=== PATIENT | female | born 1970 | race Caucasian/White ===

== ENCOUNTER 2019-09-12 18:58 | Emergency (ER) | payer MEDICAID ==
[~2019-09-12] VITALS: Ht 165.1 cm; Wt 61.2 kg
--- NOTE | 2019-09-12 19:20 | NUR ---
Pt ambulated in ER for the c/o lower abdominal discomfort and constipationx 5 days. Pt also c/o urinary retention, states she has not been able to urinate since earlier this morning. Safe environment implemented.
[2019-09-12] MEDS ORDERED: MAGNESIUM CITRATE 296 ML BOTTLE ONE (19:37)
[2019-09-12 19:40] LABS: *BILIRUBIN,URIN NEGATIVE (NEGATIVE); *CLARITY,URINE SLIGHTLY CLOUDY (CLEAR); *COLOR,URINE LIGHT YELLOW (YELLOW); *KETONES,URINE NEGATIVE (NEGATIVE); *UROBILINOGEN,URINE 0.2 E.U./dl (NORMAL); LEUKOCYTE ESTERASE ,URINE TRACE (NEGATIVE); NITRITE, URINE POSITIVE (NEGATIVE); UGLUCOSE NEGATIVE (NEGATIVE)
[2019-09-12 19:44] LABS: *BLOOD, URINE TRACE (NEGATIVE)
[2019-09-12 19:45] LABS: BACTERIA,URINE MANY /HPF (NONE SEEN); SQUAMOUS EPITHELIAL CELL,UR FEW /HPF (NONE SEEN)
[2019-09-12] MEDS ORDERED: MAGNESIUM CITRATE 296 ML BOTTLE PO ONE (19:45)
[2019-09-12] MEDS ORDERED: NITROFURANTOIN/NITROFURAN MAC 100 MG CAPSULE PO ONE (20:00)
[2019-09-12] MEDS ORDERED: NITROFURANTOIN/NITROFURAN MAC 100 MG CAPSULE ONE (20:03)
--- NOTE | 2019-09-12 21:20 | NUR ---
Patient discharged home with goel catheter and leg bag in place. No acute distress. Patient discharged to home in stable conditon. Written and verbal after care instructions given. Patient verbalizes understanding of instructions. Patient ambulated out of the Er with stable gait.
[2019-09-12 21:21] VITALS: BP 138/92
== END 2019-09-12 21:22 | disposition home or self-care (01) ==
LOC: ER 18:58
DX: N39.0 Urinary tract infection, site not specified (principal); R33.9 Retention of urine, unspecified; F17.200 Nicotine dependence, unspecified, uncomplicated; K56.41 Fecal impaction; Z88.1 Allergy status to other antibiotic agents
CPT/HCPCS: 87077; 87086; A4663

== ENCOUNTER 2019-09-14 15:33 | Emergency (ER) | payer MEDICAID ==
[~2019-09-14] VITALS: Ht 165.1 cm; Wt 61.2 kg
--- NOTE | 2019-09-14 15:57 | NUR ---
PATIENT WAS MSE BY DR MINOR IN ROOM 04B. PATIENT A & O X4.
--- NOTE | 2019-09-14 16:03 | NUR ---
PATIENT WAS ABLE TO VOID AFTER FC DC. NOTED 30 ML IN BAG PRIOR TO DC. NO PAIN. NO BLEEDING TOLERATED PROCEDURE. WILL MONITOR FOR ANY CHANGES
--- NOTE | 2019-09-14 16:03 | NUR ---
PATIENT WAS ABLE TO VOID AFTER FC DC. NOTED 30 ML IN BAG PRIOR TO DC. NO PAIN. NO BLEEDING. TOLERATED PROCEDURE. WILL MONITOR FOR ANY CHANGES. DR MINOR MADE AWARE.
--- NOTE | 2019-09-14 16:08 | NUR ---
Patient discharged to home in stable conditon. Written and verbal after care instructions given. Patient verbalizes understanding of instructions.
[2019-09-14 16:11] VITALS: BP 104/73
== END 2019-09-14 16:15 | disposition home or self-care (01) ==
LOC: ER 15:35
DX: Z46.6 Encounter for fitting and adjustment of urinary device (principal); R33.9 Retention of urine, unspecified; K59.00 Constipation, unspecified; F17.200 Nicotine dependence, unspecified, uncomplicated; Z88.1 Allergy status to other antibiotic agents
CPT/HCPCS: A4663

== ENCOUNTER 2019-11-13 20:10 | Emergency (ER) | payer MEDICAID ==
[~2019-11-13] VITALS: Ht 165.1 cm; Wt 61.2 kg
--- NOTE | 2019-11-13 20:10 | NUR ---
Patient brought in by with altered mental status, minimally responsive, appears hypoxic. Per , patient took pain medication. Patient immediately placed to room 1B. Dr Ross at bedside for MSE. O2 saturation at room air, initially 70. Placed on O2 @ 10 LPM on Non rebreather mask. O2 saturation at 96 - 100% at this time. HR elevated to 150s, Sinus Tachycardia. IV line started on R AC 20 G. Narcan administered as ordered. BS checked: 130. No other signs of physical injury or trauma. Patient woke up within a few minutes of Narcan administration. AO x 3, now verbally responsive. Breathing even and unlabored on room air. HR remains on sinus tachycardia at 130s.Veronica VALLEJO with patient at this time, carrying out MD orders. Fall and safety precautions maintained.
[2019-11-13] MEDS ORDERED: NALOXONE HCL 0.4 MG/ML AMPUL IV ONE (20:30)
[2019-11-13] MEDS ORDERED: IV NORMAL SALINE 1000 ML BAG IV ONE (20:30)
[2019-11-13 20:31] LABS: BASOPHILS # (AUTO) 0.1 K/uL (0.0-8.0); BASOPHILS % (AUTO) 0.6 % (0.0-2.0); EOSINOPHILS # (AUTO) 0.3 K/uL (0.0-0.7); EOSINOPHILS % (AUTO) 2.7 % (0.0-7.0); HEMATOCRIT 43.4 % (31.2-41.9); HEMOGLOBIN 14.1 g/dL (10.9-14.3); LYMPHOCYTES # (AUTO) 4.5 K/uL (20.0-40.0); LYMPHOCYTES % (AUTO) 39.8 % (20.5-51.5); MEAN CORPUSCULAR HEMOGLOBIN 30.2 uug (24.7-32.8); MEAN CORPUSCULAR HGB CONC 33 g/dL (32.3-35.6); MEAN CORPUSCULAR VOLUME 92.7 fL (75.5-95.3); MONOCYTES % (AUTO) 8.7 % (0.0-11.0); NEUTROPHILS # (AUTO) 5.5 K/uL (1.8-8.9); NEUTROPHILS % (AUTO) 48.2 % (38.5-71.5); PLATELET COUNT (AUTO) 382 K/uL (179-408); RED BLOOD CELL COUNT(AUTO) 4.68 MIL/uL (3.63-4.92); WHITE BLOOD COUNT (AUTO) 11.4 K/uL (3.8-11.8)
[2019-11-13 20:40] LABS: CREATININE 1.1 mg/dL (0.6-1.3); POTASSIUM 3.8 mmol/L (3.5-5.1)
[2019-11-13 20:46] LABS: BILIRUBIN,DIRECT 0.1 mg/dL (0.0-0.2); BILIRUBIN,TOTAL 0.1 mg/dL (0.2-1.0); TOTAL PROTEIN, SERUM 7.1 g/dL (6.4-8.2)
[2019-11-13 21:21] LABS: *AMPHETAMINE, URINE POSITIVE (NEGATIVE); *BARBITURATE, URINE NEGATIVE (NEGATIVE); *CANNABINOID, URINE NEGATIVE (NEGATIVE); *COCCAINE, URINE NEGATIVE (NEGATIVE); *OPIATE, URINE POSITIVE (NEGATIVE); *PHENCYCLIDINE SCREEN,URINE NEGATIVE (NEGATIVE)
--- NOTE | 2019-11-13 21:30 | NUR ---
Patient remains in bed, awake, alert and fully oriented. Water provided, as requested. Patient verbalized "feeling better". No adverse effects from Narcan observed. Denies pain, nausea or vomiting at this time. Side rails up x 2. No further signs of distress at this time.
[2019-11-13 21:41] LABS: ETHANOL < 3 MG/DL (0-0)
--- NOTE | 2019-11-13 22:20 | NUR ---
Patient discharged to home in stable condition. IV removed. Catheter intact and site benign. Pressure and 4x4 gauze applied to site. No bleeding noted. Written and verbal after care instructions given. Patient verbalizes understanding of instructions. Stressed follow up or return to ER for worsening s/s. All VS normal, recorded. Pt ambulated out of ER in steady gait. Picked up by , Ramesh.
[2019-11-13 22:24] VITALS: BP 128/78
[2019-11-14] MEDS ORDERED: NALOXONE HCL 0.4 MG/ML AMPUL ONE (01:54)
== END 2019-11-13 22:25 | disposition home or self-care (01) ==
LOC: ER 20:11
DX: T50.911A Poisoning by multiple unspecified drugs, medicaments and biological substances, accidental (unintentional), initial encounter (principal); Y92.89 Other specified places as the place of occurrence of the external cause; F15.10 Other stimulant abuse, uncomplicated; R41.82 Altered mental status, unspecified; R40.2362 Coma scale, best motor response, obeys commands, at arrival to emergency department; R40.2142 Coma scale, eyes open, spontaneous, at arrival to emergency department; R40.2252 Coma scale, best verbal response, oriented, at arrival to emergency department; R00.0 Tachycardia, unspecified; R23.0 Cyanosis; G89.29 Other chronic pain; J96.91 Respiratory failure, unspecified with hypoxia
CPT/HCPCS: 36415; 71045; 80048; 80076; 80307 ×2; 82962; 84443; 84484; 85025; 93005; 96361; 96374; 99285; J2310; 70030-TC; G0480; J7030

== ENCOUNTER 2020-10-15 02:06 | Emergency (ER) | payer MEDICAID ==
[~2020-10-15] VITALS: Ht 165.1 cm; Wt 54.4 kg
[2020-10-15] MEDS ORDERED: LIDOCAINE HCL 1% 20 ML VIAL ONE (02:57)
--- NOTE | 2020-10-15 03:00 | NUR ---
Dr Valentin into drain abscess on face.
[2020-10-15] MEDS ORDERED: SULF1TAB48 PO (03:06)
[2020-10-15 03:14] VITALS: BP 112/62
[2020-10-15] MEDS ORDERED: LIDOCAINE HCL 1% 20 ML VIAL IJ ONE (03:15)
--- NOTE | 2020-10-15 03:15 | NUR ---
Patient discharged to home in stable condition. Written and verbal after care instructions given. Patient verbalizes understanding of instructions. Stressed follow up or return to ER for worsening s/s.
== END 2020-10-15 03:16 | disposition home or self-care (01) ==
LOC: ER 02:06
DX: L02.01 Cutaneous abscess of face (principal); G89.29 Other chronic pain; Z87.892 Personal history of anaphylaxis; Z88.1 Allergy status to other antibiotic agents
CPT/HCPCS: 96372; 99283; J3490; A4663

== ENCOUNTER 2020-11-10 18:44 | Emergency (ER) | payer MEDICAID ==
[~2020-11-10] VITALS: Ht 165.1 cm; Wt 54.4 kg
[~2020-11-10 18:44] MED LIST: SULF1TAB48 PO
[2020-11-10] MEDS ORDERED: MUPIROCIN 2% OINT 22 GM TUBE TP ONE (19:15)
[2020-11-10] MEDS ORDERED: SULFAMETH/TRIMETH 800/160 MG TABLET PO ONE (19:15)
[2020-11-10] MEDS ORDERED: MUPIROCIN 2% OINT 22 GM TUBE ONE (19:20)
[2020-11-10] MEDS ORDERED: SULFAMETH/TRIMETH 800/160 MG TABLET ONE (19:20)
[2020-11-10] MEDS ORDERED: SULF1TAB47 PO (19:29)
--- NOTE | 2020-11-10 19:39 | NUR ---
I&D by Dr. Murphy. Patient discharged to home in stable condition. Written and verbal after care instructions given. Patient verbalizes understanding of instructions. Stressed follow up or return to ER for worsening s/s.
[2020-11-10 19:40] VITALS: BP 116/71
== END 2020-11-10 19:40 | disposition home or self-care (01) ==
LOC: ER 18:49
DX: L02.414 Cutaneous abscess of left upper limb (principal); F17.200 Nicotine dependence, unspecified, uncomplicated; Z87.892 Personal history of anaphylaxis; Z88.1 Allergy status to other antibiotic agents; G89.29 Other chronic pain
CPT/HCPCS: A4663

== ENCOUNTER 2020-11-14 14:24 | Emergency (ER) | payer MEDICAID ==
[~2020-11-14 14:24] MED LIST changes: +SULF1TAB47 PO
== END 2020-11-14 14:43 | disposition left against medical advice (07) ==
LOC: ER 14:24
DX: Z53.21 Procedure and treatment not carried out due to patient leaving prior to being seen by health care provider (principal)

== ENCOUNTER 2021-02-05 21:24 | Emergency (ER) | payer MEDICAID ==
[~2021-02-05] VITALS: Ht 165.1 cm; Wt 53.5 kg
--- NOTE | 2021-02-05 22:10 | NUR ---
Pt here for medication refill of risperal. Pt. denies any SI, hallucinations. Pt stable.
[2021-02-05] MEDS ORDERED: RISP0.5T5 PO (22:36)
[2021-02-05] MEDS ORDERED: risperiDONE 0.5 MG TABLET PO SCH (22:45)
--- NOTE | 2021-02-05 23:00 | NUR ---
Patient discharged to home in stable condition. Written and verbal after care instructions given. Patient verbalizes understanding of instructions. Stressed follow up or return to ER for worsening s/s. Pt. took all belongings, walks with steady gait.
[2021-02-05] MEDS ORDERED: risperiDONE 0.5 MG TABLET ONE (23:10)
[2021-02-05 23:57] VITALS: BP 115/64
== END 2021-02-05 23:00 | disposition home or self-care (01) ==
LOC: ER 21:26
DX: F22 Delusional disorders (principal); Z87.892 Personal history of anaphylaxis; Z88.1 Allergy status to other antibiotic agents; F17.210 Nicotine dependence, cigarettes, uncomplicated
CPT/HCPCS: A4663

== ENCOUNTER 2021-04-22 06:28 | Emergency (ER) | payer MEDICAID ==
[~2021-04-22] VITALS: Ht 160 cm; Wt 54.4 kg
[~2021-04-22 06:28] MED LIST changes: +RISP0.5T5 PO
[2021-04-22] MEDS ORDERED: HYDR453. TP (06:49)
[2021-04-22 07:00] VITALS: BP 136/82
--- NOTE | 2021-04-22 07:00 | NUR ---
Patient discharged to home in stable condition. Written and verbal after care instructions given. Patient verbalizes understanding of instructions. Stressed follow up or return to ER for worsening s/s. Patient ambulates with steady gait, V/S stable, paper Rx given, and left with all personal belongings.
== END 2021-04-22 07:00 | disposition home or self-care (01) ==
LOC: ER 06:33
DX: L40.9 Psoriasis, unspecified (principal); Z88.1 Allergy status to other antibiotic agents; Z87.892 Personal history of anaphylaxis; F41.9 Anxiety disorder, unspecified; Z79.899 Other long term (current) drug therapy; G89.29 Other chronic pain; F17.200 Nicotine dependence, unspecified, uncomplicated
CPT/HCPCS: A4663

== ENCOUNTER 2021-07-09 18:30 | Emergency (ER) | payer MEDICAID ==
[~2021-07-09] VITALS: Ht 165.1 cm; Wt 50.8 kg
[~2021-07-09 18:30] MED LIST changes: +HYDR453. TP
--- NOTE | 2021-07-09 19:18 | NUR ---
Armando jaime in EDM - 07/09/21 at [address] MARINO AT BEDSIDE, MSE IN PROGRESS.
--- NOTE | 2021-07-09 19:19 | NUR ---
DR. MARINO AT BEDSIDE, MSE IN PROGRESS.
--- NOTE | 2021-07-09 20:13 | NUR ---
Patient discharged to home in stable condition. Written and verbal after care instructions given. Patient verbalizes understanding of instructions. Stressed follow up or return to ER for worsening s/s. Denies any pain/discomfort upon discharge. A/O x4. No SOB or labored breathing, afebrile. Steady gait.
[2021-07-09 20:14] VITALS: BP 114/70
== END 2021-07-09 20:14 | disposition home or self-care (01) ==
LOC: ER 18:32
DX: L40.4 Guttate psoriasis (principal); F41.9 Anxiety disorder, unspecified; G89.29 Other chronic pain; Z59.02 Unsheltered homelessness; F17.210 Nicotine dependence, cigarettes, uncomplicated
CPT/HCPCS: A4663